=== PATIENT | male | born 1980 | race Caucasian/White ===

== ENCOUNTER 2022-02-20 09:51 | Emergency (ER) | payer OTHER ==
[~2022-02-20] VITALS: Ht 172.7 cm; Wt 81.7 kg
== END 2022-02-20 11:09 | disposition home or self-care (01) ==
LOC: ER 09:51
DX: S61.512A Laceration without foreign body of left wrist, initial encounter (principal); F17.290 Nicotine dependence, other tobacco product, uncomplicated; W31.82XA Contact with other commercial machinery, initial encounter
CPT/HCPCS: 29125; 99283-25